=== PATIENT | female | born 2000 | race Hispanic/Latino ===

== ENCOUNTER 2020-05-28 18:50 | Emergency (ER) | payer OTHER ==
[2020-05-28 20:58] VITALS: BP 116/78
== END 2020-05-28 21:01 | disposition home or self-care (01) ==
LOC: ER 19:22
DX: S83.92XA Sprain of unspecified site of left knee, initial encounter (principal); Y93.73 Activity, racquet and hand sports; Y92.312 Tennis court as the place of occurrence of the external cause
CPT/HCPCS: 99282

== ENCOUNTER 2021-08-12 12:01 | Emergency (ER) | payer OTHER ==
[~2021-08-12] VITALS: Ht 167.6 cm; Wt 72.6 kg
[2021-08-12] MEDS ORDERED: IBUPROFEN 600 MG TAB PO STA (12:12)
== END 2021-08-12 13:35 | disposition home or self-care (01) ==
LOC: ER 12:15
DX: M79.641 Pain in right hand (principal); M79.601 Pain in right arm; G56.01 Carpal tunnel syndrome, right upper limb
CPT/HCPCS: 99283